=== PATIENT | male | born 1980 | race Caucasian/White ===

== ENCOUNTER 2019-10-30 00:27 | Observation (INO) ==
--- NOTE | 2019-10-30 00:30 | PROVIDER DOCUMENTATION ---
[id number] Abuse/Overdose - General Stated Complaint: AMS Time Seen by Provider: 10/30/19 00:20 Source: police, EMS Allergies/Adverse Reactions: Allergies Allergy/AdvReac Type Severity Reaction Status Date / Time No Known Allergies Allergy Verified 11/21/14 19:37 Home Medications: Home Medication List Medication Instructions Recorded Confirmed Last Taken Type Unobtainable [Home Meds 10/30/19 10/30/19 Unknown History Unobtainable] - History of Present Illness-Drug/Alcohol Nature of Presenting Problem: Patient is a 39 year old white male, found by police in a car with seizure-like activity and unresponsiveness, with THC and methamphetamine in his vehicle. Patient arrives agitated, screaming and coughing, stating he has Car[place] infection. EMS report normal blood glucose. Psychiatric Complaints: reports: angry, agitated Associated Symptoms: reports: cough Review of Systems - Adult - REVIEW OF SYSTEMS - ADULT ROS:: limited per condition Constitutional: reports: see HPI Respiratory: reports: cough Past History - Adult - PAST MEDICAL HISTORY-ADULT Review of Records: reports: Old Records Reviewed, Nursing Assessment Review, Medications Reviewed, Social history reviewed & non-contributory. Major Childhood Illnesses: reports: denies history Cardiovascular: reports: denies history Physical Exam-General - CONSTITUTIONAL General Appearance: alert, other (agitated) - EYES Eyes: other (clear) - HEAD, EARS, NOSE, MOUTH & THROAT HENMT: normal ENT inspection - NECK Neck: full range of motion, supple - RESPIRATORY Respiratory: lungs clear - CARDIOVASCULAR Cardiovascular: regular rate, rhythm - GASTROINTESTINAL (ABDOMEN) Abdominal Exam: non tender, soft, no organomegaly - LYMPHATIC Lymphatic: no adenopathy - MUSCULOSKELETAL Back Exam: normal inspection, no CVA tenderness Extremity: normal range of motion, non-tender - SKIN Integumentary: normal color, normal turgor, warm/dry - NEUROLOGIC Neurologic: grossly normal - PSYCHIATRIC Psych/Mental Status: anxious, disheveled, other (agitated) Progress - PLAN OF CARE/RESULTS Progress/Plan/Lab Results: Vital Signs - 8 hr 10/30/19 00:40 10/30/19 01:30 10/30/19 02:30 Temperature 98.0 F Pulse Rate 97 H 94 H 101 H Respiratory Rate 28 H 18 16 Blood Pressure 95/59 106/83 121/57 O2 Sat by Pulse Oximetry 97 93 L 93 L 10/30/19 03:00 Temperature Pulse Rate 95 H Respiratory Rate 17 Blood Pressure 119/72 O2 Sat by Pulse Oximetry 93 L Laboratory Results - last 24 hr 10/30/19 10/30/19 10/30/19 00:31 00:45 00:45 WBC 10.68 RBC 4.99 Hgb 15.3 Hct 45.9 MCV 92.0 MCH 30.7 MCHC 33.3 RDW Std Deviation 13.9 Plt Count 305 MPV 11.8 H Immature Gran % (Auto) 0.5 Neut % (Auto) 67.7 Lymph % (Auto) 20.0 L [place] % (Auto) 8.3 Eos % (Auto) 3.1 Baso % (Auto) 0.4 Immature Gran # (Auto) 0.05 H Neut # (Auto) 7.23 H Lymph # (Auto) 2.14 [place] # (Auto) 0.89 H Eos # (Auto) 0.33 Baso # (Auto) 0.04 PT INR PTT (Actin FS) Specimen Type ARTERIAL Sample Site R BRACHIAL pH 7.36 pCO2 37 pO2 80 HCO3 21.7 Base Excess -4.0 L Oxyhemoglobin 93.3 L ABG O2 Sat (Calculated) 21.5 ABG O2 Saturation 97.5 ABG Carboxyhemoglobin 3.10 H ABG Methemoglobin 1.3 A-a O2 Difference 23.0 Total Hemoglobin 16.4 Lactate 7.00 H* Blood Gas Modality ROOM AIR FiO2 % 21.0 Sodium 140 Potassium 4.9 Chloride 101 Carbon Dioxide 24 L Anion Gap 16 BUN 9 Creatinine 0.7 Estimated GFR/1.73 m2 > 60 BUN/Creatinine Ratio 13 Glucose 108 H Calculated Osmolality 279 Calcium 9.9 Total Bilirubin 1.00 AST 25 ALT 18 Alkaline Phosphatase 84 Creatine Kinase Troponin T High Sens Total Protein 7.0 Albumin 4.5 Globulin 3.0 Albumin/Globulin Ratio 2.0 Plasma Lactate Urine Source Urine Color Urine Turbidity Urine pH Ur Specific [place] Urine Protein Ur Glucose (Stick) Ur Ketones (Stick) Urine Blood Urine Nitrite Urine Bilirubin Urobilinogen Dipstick Urine Leukocytes Urine WBC (Auto) Urine RBC (Auto) U Epithel Cells (Auto) Urine Bacteria (Auto) Urine Opiates Screen Ur Oxycodone Screen Urine Methadone Screen U Propoxyphene Qual Ur Barbituates Screen Ur Tricyclics Screen Ur Phencyclidine Scrn Ur Amphetamines Screen U Methamphetamines Scrn U Benzodiazepines Scrn Urine Cocaine Screen U Cannabinoids Screen Plasma/Serum Ethyl Alc 10/30/19 10/30/19 10/30/19 00:45 00:45 00:45 WBC RBC Hgb Hct MCV MCH MCHC RDW Std Deviation Plt Count MPV Immature Gran % (Auto) Neut % (Auto) Lymph % (Auto) [place] % (Auto) Eos % (Auto) Baso % (Auto) Immature Gran # (Auto) Neut # (Auto) Lymph # (Auto) [place] # (Auto) Eos # (Auto) Baso # (Auto) PT INR PTT (Actin FS) Specimen Type Sample Site pH pCO2 pO2 HCO3 Base Excess Oxyhemoglobin ABG O2 Sat (Calculated) ABG O2 Saturation ABG Carboxyhemoglobin ABG Methemoglobin A-a O2 Difference Total Hemoglobin Lactate Blood Gas Modality FiO2 % Sodium Potassium Chloride Carbon Dioxide Anion Gap BUN Creatinine Estimated GFR/1.73 m2 BUN/Creatinine Ratio Glucose Calculated Osmolality Calcium Total Bilirubin AST ALT Alkaline Phosphatase Creatine Kinase Troponin T High Sens 7 Total Protein Albumin Globulin Albumin/Globulin Ratio Plasma Lactate 4.1 H* Urine Source Urine Color Urine Turbidity Urine pH Ur Specific [place] Urine Protein Ur Glucose (Stick) Ur Ketones (Stick) Urine Blood Urine Nitrite Urine Bilirubin Urobilinogen Dipstick Urine Leukocytes Urine WBC (Auto) Urine RBC (Auto) U Epithel Cells (Auto) Urine Bacteria (Auto) Urine Opiates Screen Ur Oxycodone Screen Urine Methadone Screen U Propoxyphene Qual Ur Barbituates Screen Ur Tricyclics Screen Ur Phencyclidine Scrn Ur Amphetamines Screen U Methamphetamines Scrn U Benzodiazepines Scrn Urine Cocaine Screen U Cannabinoids Screen Plasma/Serum Ethyl Alc 10/30/19 10/30/19 10/30/19 00:45 00:45 01:28 WBC RBC Hgb Hct MCV MCH MCHC RDW Std Deviation Plt Count MPV Immature Gran % (Auto) Neut % (Auto) Lymph % (Auto) [place] % (Auto) Eos % (Auto) Baso % (Auto) Immature Gran # (Auto) Neut # (Auto) Lymph # (Auto) [place] # (Auto) Eos # (Auto) Baso # (Auto) PT 12.8 INR 0.92 PTT (Actin FS) 30.2 Specimen Type Sample Site pH pCO2 pO2 HCO3 Base Excess Oxyhemoglobin ABG O2 Sat (Calculated) ABG O2 Saturation ABG Carboxyhemoglobin ABG Methemoglobin A-a O2 Difference Total Hemoglobin Lactate Blood Gas Modality FiO2 % Sodium Potassium Chloride Carbon Dioxide Anion Gap BUN Creatinine Estimated GFR/1.73 m2 BUN/Creatinine Ratio Glucose Calculated Osmolality Calcium Total Bilirubin AST ALT Alkaline Phosphatase Creatine Kinase 192 Troponin T High Sens Total Protein Albumin Globulin Albumin/Globulin Ratio Plasma Lactate Urine Source Urine Color Urine Turbidity Urine pH Ur Specific [place] Urine Protein Ur Glucose (Stick) Ur Ketones (Stick) Urine Blood Urine Nitrite Urine Bilirubin Urobilinogen Dipstick Urine Leukocytes Urine WBC (Auto) Urine RBC (Auto) U Epithel Cells (Auto) Urine Bacteria (Auto) Urine Opiates Screen NONE DETECTED Ur Oxycodone Screen NONE DETECTED Urine Methadone Screen NONE DETECTED U Propoxyphene Qual NONE DETECTED Ur Barbituates Screen NONE DETECTED Ur Tricyclics Screen NONE DETECTED Ur Phencyclidine Scrn NONE DETECTED Ur Amphetamines Screen PRESUMPTIVE POSITIVE A U Methamphetamines Scrn PRESUMPTIVE POSITIVE A U Benzodiazepines Scrn NONE DETECTED Urine Cocaine Screen NONE DETECTED U Cannabinoids Screen PRESUMPTIVE POSITIVE A Plasma/Serum Ethyl Alc 10/30/19 01:28 WBC RBC Hgb Hct MCV MCH MCHC RDW Std Deviation Plt Count MPV Immature Gran % (Auto) Neut % (Auto) Lymph % (Auto) [place] % (Auto) Eos % (Auto) Baso % (Auto) Immature Gran # (Auto) Neut # (Auto) Lymph # (Auto) [place] # (Auto) Eos # (Auto) Baso # (Auto) PT INR PTT (Actin FS) Specimen Type Sample Site pH pCO2 pO2 HCO3 Base Excess Oxyhemoglobin ABG O2 Sat (Calculated) ABG O2 Saturation ABG Carboxyhemoglobin ABG Methemoglobin A-a O2 Difference Total Hemoglobin Lactate Blood Gas Modality FiO2 % Sodium Potassium Chloride Carbon Dioxide Anion Gap BUN Creatinine Estimated GFR/1.73 m2 BUN/Creatinine Ratio Glucose Calculated Osmolality Calcium Total Bilirubin AST ALT Alkaline Phosphatase Creatine Kinase Troponin T High Sens Total Protein Albumin Globulin Albumin/Globulin Ratio Plasma Lactate Urine Source CATH Urine Color YELLOW Urine Turbidity CLEAR Urine pH 5.5 Ur Specific [place] 1.023 Urine Protein 70 A Ur Glucose (Stick) NEGATIVE Ur Ketones (Stick) NEGATIVE Urine Blood TRACE A Urine Nitrite NEGATIVE Urine Bilirubin NEGATIVE Urobilinogen Dipstick NORMAL Urine Leukocytes NEGATIVE Urine WBC (Auto) <10 Urine RBC (Auto) <10 U Epithel Cells (Auto) <10 Urine Bacteria (Auto) NEGATIVE Urine Opiates Screen Ur Oxycodone Screen Urine Methadone Screen U Propoxyphene Qual Ur Barbituates Screen Ur Tricyclics Screen Ur Phencyclidine Scrn Ur Amphetamines Screen U Methamphetamines Scrn U Benzodiazepines Scrn Urine Cocaine Screen U Cannabinoids Screen Plasma/Serum Ethyl Alc Orders Category Date Time Status Admit - [facility] Routine AdmDCTranf 10/30/19 03:14 Active Cardiac Monitoring DIRECTED Care 10/30/19 00:32 Active IV Insertion NOW Care 10/30/19 01:19 Completed Isolation Precautions Setup NOW Care 10/30/19 00:23 Active NEWS Score >or=5:Order NEWS Bundle S.O. NOW Care 10/30/19 01:02 Active Neurological Check Q4H Care 10/30/19 03:16 Active Notify Provider of NEWS Score NOW Care 10/30/19 01:19 Active Restraint Init/Renew Violent ONCE Care 10/30/19 00:35 Active Resuscitation Status Routine Care 10/30/19 03:14 Ordered Saline Loc NOW Care 10/30/19 00:32 Active Seizure Precautions ROUTINE Care 10/30/19 03:18 Active Vital Signs Order Q 4-HR ASSESS Care 10/30/19 03:14 Active Z-Document. for Tele Applied ORDERED Care 10/30/19 03:16 Active CHEST-PORTABLE [RAD] Stat Exams 10/30/19 00:[address] HEAD W/O CONTRAST [CT] Stat Exams 10/30/19 00:33 Taken ABG [RESP] Routine Lab 10/30/19 00:31 Completed ALCOHOL BLOOD Stat Lab 10/30/19 00:45 Completed BLOOD CULTURE [BLDCUL] Stat Lab 10/30/19 01:32 Ordered CBC WITH ELECTRONIC DIFF [HEME] Stat Lab 10/30/19 00:45 Completed CK PROFILE [SP CHEM] Stat Lab 10/30/19 00:45 Completed COMPREHENSIVE METABOLIC PANEL [CHEM] Stat Lab 10/30/19 00:45 Completed LACTATE, PLASMA [CHEM] Lab 10/30/19 04:30 Uncollected LACTATE, PLASMA [CHEM] Lab 10/30/19 07:30 Uncollected LACTATE, PLASMA [CHEM] Q3H Lab 10/30/19 00:45 Completed PROTIME WITH INR [COAG] Stat Lab 10/30/19 00:45 Completed PTT [COAG] Stat Lab 10/30/19 00:45 Completed TROPONIN T HIGH SENSITIVITY Stat Lab 10/30/19 00:45 Completed URINALYSIS W/POSS RFLX CULT [URINALYSIS] Stat Lab 10/30/19 01:28 Completed URINE DRUG SCREEN PL Stat Lab 10/30/19 01:28 Completed 0.9% Sodium Chloride Inj [Ns] 1,000 ml Med 10/30/19 03:14 Active IV 150 mls/hr 0.9% Sodium Chloride Inj [Ns] 1,000 ml Med 10/30/19 01:52 Discontinued IV 999 mls/hr Lorazepam [Ativan] Med 10/30/19 00:33 Discontinued 1 mg IV NOW ONE Lorazepam [Ativan] Med 10/30/19 03:17 Active 1 mg IV Q2H PRN PRN Water, Sterile Inj [Sterile Water Inj.] Med 10/30/19 00:40 Discontinued 1.2 ml INJ NOW ONE Ziprasidone [Geodon] Med 10/30/19 00:40 Discontinued 20 mg IM NOW ONE O2 Per Protocol Stat Oth 10/30/19 01:19 Active Oxygen Device Stat Oth 10/30/19 00:31 Active Telemetry [OM.EQ] Routine Oth 10/30/19 03:14 Active EKG [EKG] Stat Ther 10/30/19 00:32 Ordered Transfer/Admit Order [TRANSFER] Routine Transfer 10/30/19 03:18 Ordered Result Diagrams: 10/30/19 00:45 10/30/19 00:45 - REASSESSMENT Reassessment #1 Time Reassessed: 02:30 Status: improving Reassessment Comment: resting comfortably - EKG 1 Time of EKG reading by physician:: 01:23 EKG Interpretation (*Must complete 3 of following elements*): Normal Rate: 95 [place]: normal QRS: normal ME Interval: normal ST Wave: normal Comments: no STEMI - XRAY 1 XRAY Study: Chest XRAY Interpretation: nad - CT/MRI 1 CT Study: Head CT Results: NAD - CONSULTS/PCP/HOSPITALIST Notification #1 *Consult/PCP/Hospitalist*: Dr. Matos, hospitalist Time Discussed: 03:05 Consult Disposition: Admit Departure - Departure Date of Disposition Decision: 10/30/19 Time of Disposition Decision: 03:07 DIAGNOSIS: Substance abuse, Seizure-like activity Altered mental status Qualifiers: Altered mental status type: unspecified Qualified Code(s): R41.82 - Altered m ental status, unspecified Disposition: ADMITTED INPATIENT 09 Certified Medical Emergency: Emergent Condition: Stable - Critical Care Note This patient required my direct & personal management of CC.: No Attestation - Physician/ GERTRUDIS Attestation Patient care was provided by Advanced Practice Provider:: No The physician spent face to face time with patient:: Yes Advanced Practice Provider documentation review:: Supervising physician onsite and consulted in the evaluation and care of this patient. The physician did have a face to face encounter with the patient.
[2019-10-30] MEDS ORDERED: ATIVAN IV ONE (00:33)
[2019-10-30] MEDS ORDERED: GEODON IM ONE (00:40)
[2019-10-30] MEDS ORDERED: STERILE WATER INJ. INJ ONE (00:40)
[2019-10-30 00:48] LABS: BLOOD TYPE ARTERIAL; HCO3-(ACT) 21.7 mmoll (20.0-26.0); METHB 1.3 % (0.0-1.5); O2(CT) 21.5 mL/dL (15.0-23.0); O2HB 93.3 % (95.0-99.0); PCO2(98.6) 37 mmHg (35-45); PO2(98.6) 80 mmHg (60-100); SAMPLE BLOOD; SAO2 97.5 % (95.0-100.0); THB 16.4 g/dL (11.5-17.4); pH(98.6) 7.36 (7.35-7.45)
[2019-10-30 00:52] LABS: MODALITY ROOM AIR
[2019-10-30 01:22] LABS: BASO# 0.04 X1000 (0.0-0.2); BASO% 0.4 % (0.0-0.8); EOS# 0.33 X1000 (0.0-0.7); EOS% 3.1 % (0.0-10.0); HEMATOCRIT 45.9 % (42.0-52.0); HEMOGLOBIN 15.3 g/dL (14.0-18.0); IMM GRAN# 0.05 X1000 (0.0-0.04); IMM GRAN% 0.5 % (0.0-0.5); LYMPH# 2.14 X1000 (1.2-3.4); MCH 30.7 PG (27-31); MCHC 33.3 g/dL (33-37); MONO# 0.89 X1000 (0.11-0.59); MONO% 8.3 % (1.7-9.3); MPV 11.8 FL (7.4-10.4); NEUT# 7.23 X1000 (1.4-6.5); NEUT% 67.7 % (42.2-75.2); PLT 305 X1000 (130-400); RBC 4.99 XMIL (4.7-6.1); RDW 13.9 % (11.5-14.5); WBC 10.68 X1000 (4.8-10.8)
[2019-10-30 01:27] LABS: ALBUMIN 4.5 g/dL (3.5-5.0); ALKALINE PHOSPHATASE 84 U/L (32-122); BUN 9 mg/dL (8-22); CALCIUM 9.9 mg/dL (8.8-10.2); CREATININE 0.7 mg/dL (0.7-1.2); ESTIMATED GFR > 60; GLUCOSE 108 mg/dL (70-104); GOT 25 U/L (10-34); GPT 18 U/L (10-44); TCO2 24 mmol/L (25-35)
[2019-10-30 01:38] LABS: URINE SOURCE CATH
[2019-10-30 01:39] LABS: INR 0.92; PROTIME 12.8 Seconds (11.0-16.0); PTT 30.2 Seconds (22.3-41.8)
[2019-10-30] MEDS ORDERED: NS 1,000 ML IV ONE ×2 (01:52→03:14)
[2019-10-30 02:05] LABS: CHLORIDE 101 mmol/L (98-107); POTASSIUM 4.9 mmol/L (3.5-5.1); SODIUM 140 mmol/L (136-145)
[2019-10-30 02:08] LABS: AGAP 16; COSMO 279
[2019-10-30 02:15] LABS: BILIRUBIN URINE NEGATIVE (NEGATIVE); BLOOD URINE TRACE (NEGATIVE); COLOR YELLOW; GLUCOSE URINE NEGATIVE (NEGATIVE); KETONE URINE NEGATIVE (NEGATIVE); LEUKOCYTES URINE NEGATIVE (NEGATIVE); NITRITE URINE NEGATIVE (NEGATIVE); PH URINE 5.5; PROTEIN URINE 70 mg/dL (NEGATIVE); SP GRAVITY URINE 1.023; TURBIDITY URINE CLEAR (CLEAR); UROBILINOGEN URINE NORMAL (NORMAL)
[2019-10-30 02:16] LABS: UR AMPHETAMINES QUAL PRESUMPTIVE POSITIVE (NONE DETECT); UR BARBITUATES QUAL NONE DETECTED (NONE DETECT); UR BENZODIAZEPIN QUAL NONE DETECTED (NONE DETECT); UR COCAINE QUAL NONE DETECTED (NONE DETECT); UR EPITHELIAL CELLS <10 /HPF (<10); UR METHADONE QUAL NONE DETECTED (NONE DETECT); UR METHAMPHETAMINE QUAL PRESUMPTIVE POSITIVE (NONE DETECT); UR OPIATES QUAL NONE DETECTED (NONE DETECT); UR OXYCODONE QUAL NONE DETECTED (NONE DETECT); UR PCP QUAL NONE DETECTED (NONE DETECT); UR PROPOXYPHENE QUAL NONE DETECTED (NONE DETECT); UR TCA QUAL NONE DETECTED (NONE DETECT); URINE BACTERIA NEGATIVE /HPF; URINE RBC <10 /HPF (<10); URINE WBC <10 /HPF (<10)
[2019-10-30 02:17] LABS: UR CANNABINOIDS QUAL PRESUMPTIVE POSITIVE (NONE DETECT)
[2019-10-30] MEDS ORDERED: ATIVAN IV PRN (03:17)
--- NOTE | 2019-10-30 04:33 | EKG Report ---
Test Performed on : 10/30/2019 01:22:40 AM Test Reason : pain Blood Pressure : / mmHG Vent. Rate : 095 BPM Atrial Rate : 095 BPM P-R Int : 134 ms QRS Dur : 092 ms QT Int : 374 ms P-R-T Axes : 069 036 024 degrees QTc Int : 469 ms Normal sinus rhythm. Normal ECG No previous ECGs available Unconfirmed Result
[2019-10-30 05:40] LABS: INFLUENZA A NEGATIVE (NEGATIVE); INFLUENZA B NEGATIVE (NEGATIVE)
[2019-10-30] MEDS ORDERED: BICILLIN C-R IM ONE (05:50)
--- NOTE | 2019-10-30 07:12 | Diag Imaging Result Doc PS360 ---
EXAM: CT HEAD W/O CONTRAST HISTORY: AMS TECHNIQUE: CT head without contrast COMPARISON: None. FINDINGS: No parenchymal hemorrhage. No epidural or subdural hematoma. No subarachnoid hemorrhage. No mass identified on this noncontrasted exam. No hydrocephalus. No sinus opacification. IMPRESSION: No hemorrhage. Negative brain CT without contrast. A preliminary report was given at 2:50 AM This exam was performed using automated exposure control, adjustment of mA or kV according to patient size, and/or use of iterative reconstruction technique. Electronically signed by Emory Linder 10/30/2019 7:10 AM
--- NOTE | 2019-10-30 07:32 | Diag Imaging Result Doc PS360 ---
EXAM: CHEST-PORTABLE HISTORY: cough TECHNIQUE: Single view COMPARISON: 10/04/2013 FINDINGS: The lungs are well expanded although the left hemidiaphragm is elevated. The heart is not enlarged. The vessels are not distended. There are mild increased markings in the left base. No effusion identified. IMPRESSION: Atelectasis versus a small infiltrate in the left base Electronically signed by Emory Linder 10/30/2019 7:30 AM
[2019-10-30 08:22] VITALS: BP 119/80
--- NOTE | 2019-11-02 12:20 | DISCHARGE SUMMARY ---
ADMISSION DATE: 10/30/2019 DISCHARGE DATE: 10/30/2019 HOSPITAL COURSE: As we mentioned in the H and P, this patient was admitted to the hospital overnight. He has not been by any doctor. Next morning, he decided to leave AMA. DIAGNOSES ON ADMISSION: 1. Seizure-like activity. 2. Toxic encephalopathy because of drug overdose. cc: Harlan Dominguez MD
--- NOTE | 2019-11-02 12:23 | HISTORY AND PHYSICAL ---
HISTORY OF PRESENT ILLNESS: This patient was seen in the emergency department for substance abuse, seizure-like activity and I was called for admission. The patient was accepted. He decided to leave [facility] before he was seen by me. cc: Harlan Dominguez MD
== END 2019-10-30 09:15 | disposition left against medical advice (07) ==
LOC: P.MEDSURG 00:27 → P.ED 00:27
PROVIDERS: ATTEND Internal Medicine